=== PATIENT | male | born 1970 | race African-American/Black ===

== ENCOUNTER 2017-10-15 00:38 | Inpatient (IN) | payer SELFPAY ==
[~2017-10-15] VITALS: Ht 193 cm; Wt 117.7 kg
[2017-10-15] MEDS ORDERED: MORPHINE SULFATE 4 MG/ML CPJ (NOT FOR IM USE) IV STA (01:05)
[2017-10-15] MEDS ORDERED: SODIUM CHLORIDE 0.9% 1,000 ML IV ONE (01:05)
[2017-10-15] MEDS ORDERED: ONDANSETRON HCL 4MG/2ML VIAL IV STA (01:05)
[2017-10-15] MEDS ORDERED: AZITHROMYCIN 500 MG in DEXT 5% WATER 250 ML IV ONE (01:15)
[2017-10-15] MEDS ORDERED: CEFTRIAXONE 1 G PREMIX 50 ML IV ONE (01:15)
[2017-10-15 01:25] LABS: HEMATOCRIT. 40.3 % (42.0-52.0); HEMOGLOBIN. 12.9 g/dL (14.0-18.0); MEAN CORPUSCULAR HEMOGLOBIN 26.2 pg (28.0-32.0); MEAN CORPUSCULAR VOLUME 81.7 fL (80.0-94.0); MEAN PLATELET VOLUME 9.6 fl (7.4-10.4); PLATELET 304 x1000/uL (130-400); RED BLOOD CELL COUNT 4.94 mill/uL (4.7-6.1); RED CELL DISTRIBUTION WIDTH 13.8 % (11.6-14.6)
[2017-10-15 01:31] LABS: BG BASE EXCESS -7.4 mmol/L (-2.0-2.0); BG CARBOXYHEMOGLOBIN 0.4 % (0.5-1.5); BG DEOXYHEMOGLOBIN 5.4 % (0.0-5.0); BG FRACTION INSPIRED OXYGEN 21; BG HCO3 ACT 15.4 mmol/L (22.0-26.0); BG METHEMOGLOBIN 0.3 % (0.0-1.5); BG OXYGEN SATURATION 94.6 % (92.0-98.5); BG OXYHEMOGLOBIN 93.9 % (94.0-97.0); BG PCO2 24.9 mmHg (35.0-45.0); BG PH 7.409 (7.350-7.450); BG PO2 74.8 mmHg (75.0-100.0); BG SAMPLE SITE RIGHT RADIAL; BG TOTAL HEMOGLOBIN 13.6 g/dL (12.0-18.0); BG VENT MODE ROOM AIR
[2017-10-15 01:32] LABS: INR 1.3; PROTHROMBIN TIME 13.4 sec (9.4-11.6)
[2017-10-15] MEDS ORDERED: SODIUM CHLORIDE 0.9% 1000ML BAG (SEPSIS BOLUS) IV ONE (01:45)
[2017-10-15] MEDS ORDERED: ACETAMINOPHEN 325MG TABLET PO ONE (01:45)
[2017-10-15 02:10] LABS: PLATELET ESTIMATE NORMAL
[2017-10-15 02:11] LABS: CARBON DIOXIDE 16 mEq/L (21-32); CHLORIDE 84 mEq/L (98-107)
[2017-10-15 02:12] LABS: TROPONIN I 0.03 ng/mL (0.00-0.04)
[2017-10-15] MEDS ORDERED: ACETAMINOPHEN 325MG TABLET PO PRN (02:15)
[2017-10-15] MEDS ORDERED: IPRATROPIUM/ALBUTEROL 0.5-3(2.5)MG/3ML NEB INH PRN (03:30)
[2017-10-15] MEDS ORDERED: CLONIDINE 0.1MG TABLET PO PRN (03:30)
[2017-10-15] MEDS ORDERED: MAGNESIUM/ALUMINUM HYDROXIDE/SIMETHICONE 30ML UDC PO PRN (03:30)
[2017-10-15] MEDS ORDERED: DIPHENHYDRAMINE 50MG/ML VIAL IV PRN (03:30)
[2017-10-15] MEDS ORDERED: PIPERACILLIN/TAZ 3.375G PREMIX 50 ML IV SCH (03:30)
[2017-10-15] MEDS ORDERED: DEXTROSE 50% WATER 50ML SYRINGE IV PRN (03:30)
[2017-10-15] MEDS ORDERED: ONDANSETRON HCL 4MG/2ML VIAL IV PRN (03:30)
[2017-10-15] MEDS ORDERED: PIPERACILLIN/TAZ 3.375G PREMIX 50 ML IV NR (05:00)
[2017-10-15] MEDS ORDERED: INSULIN REGULAR (HUMULIN R) 300UNITS/3ML SUBCUT ONE (05:00)
[2017-10-15] MEDS ORDERED: VANCOMYCIN 1 G PREMIX 200 ML IV NR (05:30)
[2017-10-15 06:41] LABS: CLARITY URINE CLEAR (CLEAR); COLOR URINE YELLOW (YELLOW); KETONES URINE 1+ (NEGATIVE); LEUKOCYTE ESTERASE URINE NEGATIVE (NEGATIVE); NITRITE URINE NEGATIVE (NEGATIVE); OCCULT BLOOD URINE TRACE (NEGATIVE); PROTEIN URINE TRACE (NEGATIVE); SPECIFIC GRAVITY URINE 1.034 (1.005-1.030)
[2017-10-15] MEDS: SODIUM CHLORIDE 0.9% 1,000 ML IV SCH ×2 (07:20→23:30)
[2017-10-15 08:29] LABS: *AMPHETAMINES SCREEN URINE NEGATIVE (NEGATIVE); *BARBITURATES SCREEN URINE NEGATIVE (NEGATIVE); *BENZODIAZEPINES SCREEN URINE PRESUMTIVE POSITIVE (NEGATIVE); *COCAINE SCREEN URINE NEGATIVE (NEGATIVE); CANNABINOID URINE SCREEN NEGATIVE (NEGATIVE); METHADONE URINE SCREEN NEGATIVE (NEGATIVE); OPIATES URINE SCREEN PRESUMTIVE POSITIVE (NEGATIVE); PHENCYCLIDINE URINE SCREEN NEGATIVE (NEGATIVE)
[2017-10-15] MEDS: BLOOD SUGAR DIAGNOSTIC STRIP TEST SCH ×4 (08:48→21:06)
[2017-10-15 09:15] VITALS: BP 147/84
[2017-10-15] MEDS ORDERED: INSULIN GLARGINE UD 100 UNITS/ML SYR SUBCUT SCH (10:00)
[2017-10-15] MEDS ORDERED: DILTIAZEM HCL 5MG/ML 5ML VIAL IV NR ×2 (11:15→16:15)
[2017-10-15] MEDS: DILTIAZEM HCL 125 MG in SODIUM CHLORIDE 0.9% 100 ML IV PRN ×2 (11:37→21:40)
[2017-10-15] MEDS: ACETAMINOPHEN 325MG TABLET PO PRN (11:40)
[2017-10-15] MEDS: GUAIFENESIN 600MG ER TABLET PO SCH ×2 (11:40→21:01)
[2017-10-15] MEDS: VANCOMYCIN 1 G PREMIX 200 ML IV SCH ×2 (11:41→21:47)
[2017-10-15] MEDS ORDERED: LIDOCAINE HCL 1% 20ML VIAL (Pyxis) INJ ONE (12:58)
[2017-10-15 13:25] LABS: HEMATOCRIT. 36.6 % (42.0-52.0); MEAN CORPUSCULAR HEMOGLOBIN 26.7 pg (28.0-32.0); MEAN PLATELET VOLUME 10.3 fl (7.4-10.4); PLATELET 318 x1000/uL (130-400); RED BLOOD CELL COUNT 4.52 mill/uL (4.7-6.1)
[2017-10-15 13:40] LABS: CARBON DIOXIDE 20 mEq/L (21-32); CHLORIDE 91 mEq/L (98-107)
[2017-10-15] MEDS: INSULIN LISPRO 100 UNITS/ML SUBCUT SCH ×3 (13:47→21:11)
[2017-10-15 13:51] LABS: PLATELET ESTIMATE NORMAL
[2017-10-15] MEDS ORDERED: INSULIN GLARGINE UD 100 UNITS/ML SYR SUBCUT NR (14:00)
[2017-10-15] MEDS ORDERED: LIDOCAINE HCL 1% 20ML VIAL (Pyxis) INJ INFIL ONE (14:00)
[2017-10-15] MEDS: PROMETHAZINE/DEXTROMETHORPHAN 6.25-15MG/5ML BOTTLE 120ML PO PRN (15:26)
[2017-10-15] MEDS ORDERED: IPRATROPIUM/ALBUTEROL 0.5-3(2.5)MG/3ML NEB HHN PRN (15:45)
[2017-10-15] MEDS: PIPERACILLIN/TAZ 3.375G PREMIX 50 ML IV SCH ×2 (16:49→21:01)
[2017-10-15] MEDS: BUDESONIDE 0.5MG/2ML NEB HHN SCH (19:59)
[2017-10-15] MEDS: IPRATROPIUM/ALBUTEROL 0.5-3(2.5)MG/3ML NEB HHN SCH ×2 (19:59→23:55)
[2017-10-15 20:00] VITALS: BP 146/98
[2017-10-15 22:00] VITALS: BP 127/86
[2017-10-16] VITALS (12 sets, daily range): BP systolic 118–141; BP diastolic 67–94
[2017-10-16] MEDS: DIGOXIN 500MCG/2ML AMP IV PRN ×3 (00:54→06:30)
[2017-10-16] MEDS: IPRATROPIUM/ALBUTEROL 0.5-3(2.5)MG/3ML NEB HHN SCH ×2 (05:00→07:50)
[2017-10-16] MEDS: PIPERACILLIN/TAZ 3.375G PREMIX 50 ML IV SCH ×3 (06:30→21:30)
[2017-10-16] MEDS: BLOOD SUGAR DIAGNOSTIC STRIP TEST SCH ×4 (06:43→21:42)
[2017-10-16] MEDS: INSULIN LISPRO 100 UNITS/ML SUBCUT SCH ×4 (06:47→21:52)
[2017-10-16] MEDS: DILTIAZEM HCL 125 MG in SODIUM CHLORIDE 0.9% 100 ML IV PRN ×3 (07:21→23:27)
[2017-10-16] MEDS: BUDESONIDE 0.5MG/2ML NEB HHN SCH ×2 (07:51→21:05)
[2017-10-16] MEDS: SODIUM CHLORIDE 0.9% 1,000 ML IV SCH ×2 (09:30→19:30)
[2017-10-16 09:39] LABS: HEMATOCRIT. 36.3 % (42.0-52.0); MEAN CORPUSCULAR HEMOGLOBIN 26.2 pg (28.0-32.0); MEAN CORPUSCULAR VOLUME 79.4 fL (80.0-94.0); MEAN PLATELET VOLUME 9.7 fl (7.4-10.4); PLATELET 346 x1000/uL (130-400); RED BLOOD CELL COUNT 4.58 mill/uL (4.7-6.1); RED CELL DISTRIBUTION WIDTH 14.2 % (11.6-14.6)
[2017-10-16] MEDS ORDERED: INSULIN GLARGINE UD 100 UNITS/ML SYR SUBCUT SCH (10:00)
[2017-10-16 10:04] LABS: CARBON DIOXIDE 24 mEq/L (21-32); CHLORIDE 92 mEq/L (98-107)
[2017-10-16] MEDS: GUAIFENESIN 600MG ER TABLET PO SCH ×2 (10:18→21:30)
[2017-10-16] MEDS: IPRATROPIUM BROMIDE (0.02%) 0.5MG/2.5ML NEB HHN SCH ×2 (13:09→21:00)
[2017-10-16 13:52] LABS: PLATELET ESTIMATE NORMAL
[2017-10-16] MEDS: VANCOMYCIN 1 G PREMIX 200 ML IV SCH ×2 (15:14→23:28)
[2017-10-16] MEDS: PROMETHAZINE/DEXTROMETHORPHAN 6.25-15MG/5ML BOTTLE 120ML PO PRN (15:14)
[2017-10-16] MEDS: ACETAMINOPHEN 325MG TABLET PO PRN (16:35)
[2017-10-16] MEDS: ENOXAPARIN 120MG/0.8ML SYR SUBCUT SCH (21:30)
[2017-10-16] MEDS: METOPROLOL TARTRATE 50MG TABLET PO SCH (23:42)
[2017-10-17] VITALS (12 sets, daily range): BP systolic 112–165; BP diastolic 61–98
[2017-10-17] MEDS: IPRATROPIUM BROMIDE (0.02%) 0.5MG/2.5ML NEB HHN SCH ×4 (01:16→20:15)
[2017-10-17] MEDS: PIPERACILLIN/TAZ 3.375G PREMIX 50 ML IV SCH ×4 (01:22→19:36)
[2017-10-17] MEDS: DILTIAZEM HCL 125 MG in SODIUM CHLORIDE 0.9% 100 ML IV PRN ×2 (07:05→17:23)
[2017-10-17 07:17] LABS: HEMATOCRIT. 34.2 % (42.0-52.0); HEMOGLOBIN. 11.4 g/dL (14.0-18.0); MEAN CORPUSCULAR HEMOGLOBIN 26.7 pg (28.0-32.0); PLATELET 310 x1000/uL (130-400); RED BLOOD CELL COUNT 4.27 mill/uL (4.7-6.1); RED CELL DISTRIBUTION WIDTH 14.1 % (11.6-14.6)
[2017-10-17] MEDS: INSULIN LISPRO 100 UNITS/ML SUBCUT SCH ×4 (08:00→21:31)
[2017-10-17] MEDS: BLOOD SUGAR DIAGNOSTIC STRIP TEST SCH ×4 (08:10→21:14)
[2017-10-17 08:23] LABS: CARBON DIOXIDE 25 mEq/L (21-32); CHLORIDE 91 mEq/L (98-107)
[2017-10-17] MEDS: ENOXAPARIN 120MG/0.8ML SYR SUBCUT SCH ×2 (08:59→21:16)
[2017-10-17] MEDS: GUAIFENESIN 600MG ER TABLET PO SCH ×2 (08:59→21:14)
[2017-10-17] MEDS: METOPROLOL TARTRATE 50MG TABLET PO SCH ×3 (08:59→21:15)
[2017-10-17 09:56] LABS: CLARITY URINE CLEAR (CLEAR); COLOR URINE DARK YELLOW (YELLOW); KETONES URINE 3+ (NEGATIVE); LEUKOCYTE ESTERASE URINE NEGATIVE (NEGATIVE); NITRITE URINE NEGATIVE (NEGATIVE); OCCULT BLOOD URINE 1+ (NEGATIVE); PH URINE 6.5 (4.5-8.0); PROTEIN URINE 1+ (NEGATIVE); SPECIFIC GRAVITY URINE 1.035 (1.005-1.030); UROBILINOGEN URINE >8.0 E.U./dL (0.2-1.0)
[2017-10-17 10:19] LABS: PLATELET ESTIMATE NORMAL
[2017-10-17] MEDS: BUDESONIDE 0.5MG/2ML NEB HHN SCH ×2 (10:37→20:15)
[2017-10-17] MEDS: VANCOMYCIN 1 G PREMIX 200 ML IV SCH (10:49)
[2017-10-17] MEDS: DILTIAZEM HCL 60MG TABLET PO SCH ×2 (14:13→21:15)
[2017-10-17] MEDS ORDERED: TETANUS, DIPHTHERIA, PERTUSSIS VAC/PF 0.5ML (>7YR OLD) IM ONE (15:15)
[2017-10-17] MEDS: VANCOMYCIN 1500MG in DEXTROSE 5% WATER 250ML IV SCH (17:23)
[2017-10-17] MEDS ORDERED: INSULIN DETEMIR UD 100 UNITS/ML SYR SUBCUT SCH (22:00)
[2017-10-17] MEDS ORDERED: INSULIN GLARGINE UD 100 UNITS/ML SYR SUBCUT SCH (22:00)
[2017-10-17] MEDS ORDERED: METOPROLOL TARTRATE 25MG TABLET PO NR (22:30)
[2017-10-18] VITALS (14 sets, daily range): BP systolic 110–157; BP diastolic 54–101
[2017-10-18] MEDS: PIPERACILLIN/TAZ 3.375G PREMIX 50 ML IV SCH ×4 (01:34→20:09)
[2017-10-18] MEDS: IPRATROPIUM BROMIDE (0.02%) 0.5MG/2.5ML NEB HHN SCH ×4 (01:40→20:09)
[2017-10-18] MEDS: VANCOMYCIN 1500MG in DEXTROSE 5% WATER 250ML IV SCH ×2 (02:14→09:24)
[2017-10-18] MEDS: DILTIAZEM HCL 125 MG in SODIUM CHLORIDE 0.9% 100 ML IV PRN ×3 (02:22→20:34)
[2017-10-18] MEDS: MORPHINE SULFATE 4 MG/ML CPJ (NOT FOR IM USE) IV PRN ×2 (06:25→22:43)
[2017-10-18] MEDS: BLOOD SUGAR DIAGNOSTIC STRIP TEST SCH ×4 (07:30→21:53)
[2017-10-18] MEDS: BUDESONIDE 0.5MG/2ML NEB HHN SCH (08:15)
[2017-10-18] MEDS ORDERED: METOPROLOL TARTRATE 50MG TABLET PO SCH ×2 (09:00)
[2017-10-18] MEDS: GUAIFENESIN 600MG ER TABLET PO SCH ×2 (09:24→21:50)
[2017-10-18] MEDS: ENOXAPARIN 120MG/0.8ML SYR SUBCUT SCH ×2 (09:27→21:51)
[2017-10-18] MEDS: INSULIN LISPRO 100 UNITS/ML SUBCUT SCH ×4 (09:28→21:52)
[2017-10-18 09:29] LABS: HEMATOCRIT. 36.4 % (42.0-52.0); HEMOGLOBIN. 11.9 g/dL (14.0-18.0); MEAN CORPUSCULAR HEMOGLOBIN 26.2 pg (28.0-32.0); MEAN CORPUSCULAR VOLUME 80.2 fL (80.0-94.0); MEAN PLATELET VOLUME 9.1 fl (7.4-10.4); PLATELET 337 x1000/uL (130-400); RED BLOOD CELL COUNT 4.54 mill/uL (4.7-6.1); RED CELL DISTRIBUTION WIDTH 14.3 % (11.6-14.6)
[2017-10-18] MEDS: INSULIN GLARGINE UD 100 UNITS/ML SYR SUBCUT SCH ×2 (09:31→21:52)
[2017-10-18 10:00] LABS: CARBON DIOXIDE 25 mEq/L (21-32); CHLORIDE 91 mEq/L (98-107)
[2017-10-18] MEDS ORDERED: METOPROLOL TARTRATE 25MG TABLET PO SCH (13:00)
[2017-10-18] MEDS: FUROSEMIDE 40MG/4ML VIAL IVP SCH (14:39)
[2017-10-18] MEDS: CEFAZOLIN 2,000 MG in DEXTROSE 5% WATER 50 ML IV SCH ×2 (15:56→23:21)
[2017-10-18] MEDS: DILTIAZEM HCL 60MG TABLET PO SCH ×3 (15:57→23:23)
[2017-10-18] MEDS ORDERED: CEFAZOLIN 2,000 MG in DEXT 5% WATER 100 ML IV SCH (16:00)
[2017-10-18 20:53] LABS: PLATELET ESTIMATE NORMAL
[2017-10-18] MEDS: METOPROLOL TARTRATE 100MG TABLET PO SCH (21:50)
[2017-10-19] VITALS (15 sets, daily range): BP systolic 114–167; BP diastolic 58–101
[2017-10-19] MEDS: PIPERACILLIN/TAZ 3.375G PREMIX 50 ML IV SCH ×4 (01:29→21:32)
[2017-10-19] MEDS: IPRATROPIUM BROMIDE (0.02%) 0.5MG/2.5ML NEB HHN SCH ×3 (02:36→21:31)
[2017-10-19] MEDS: DILTIAZEM HCL 125 MG in SODIUM CHLORIDE 0.9% 100 ML IV PRN (04:27)
[2017-10-19] MEDS: DILTIAZEM HCL 60MG TABLET PO SCH ×3 (06:31→17:29)
[2017-10-19 06:42] LABS: HEMATOCRIT. 35.5 % (42.0-52.0); HEMOGLOBIN. 11.7 g/dL (14.0-18.0); MEAN CORPUSCULAR HEMOGLOBIN 26.5 pg (28.0-32.0); MEAN CORPUSCULAR VOLUME 80.2 fL (80.0-94.0); MEAN PLATELET VOLUME 9.2 fl (7.4-10.4); PLATELET 348 x1000/uL (130-400); RED BLOOD CELL COUNT 4.42 mill/uL (4.7-6.1); RED CELL DISTRIBUTION WIDTH 14.2 % (11.6-14.6)
[2017-10-19 07:23] LABS: CARBON DIOXIDE 25 mEq/L (21-32); CHLORIDE 93 mEq/L (98-107)
[2017-10-19] MEDS: BLOOD SUGAR DIAGNOSTIC STRIP TEST SCH ×4 (07:30→21:32)
[2017-10-19] MEDS: INSULIN LISPRO 100 UNITS/ML SUBCUT SCH ×4 (08:00→21:00)
[2017-10-19] MEDS: GUAIFENESIN 600MG ER TABLET PO SCH ×2 (09:28→21:30)
[2017-10-19] MEDS: CEFAZOLIN 2,000 MG in DEXTROSE 5% WATER 50 ML IV SCH ×2 (09:28→17:28)
[2017-10-19] MEDS: METFORMIN HCL 850MG TABLET PO SCH ×2 (09:28→17:28)
[2017-10-19] MEDS: POTASSIUM CHLORIDE 20MEQ TABLET SR PO SCH (09:28)
[2017-10-19] MEDS: FUROSEMIDE 40MG/4ML VIAL IVP SCH (09:28)
[2017-10-19] MEDS: METOPROLOL TARTRATE 100MG TABLET PO SCH ×2 (09:31→21:30)
[2017-10-19] MEDS: ENOXAPARIN 120MG/0.8ML SYR SUBCUT SCH ×2 (09:31→21:32)
[2017-10-19] MEDS: INSULIN GLARGINE UD 100 UNITS/ML SYR SUBCUT SCH ×2 (09:44→22:09)
[2017-10-19] MEDS ORDERED: KCL 20MEQ/100ML PREMIX 100 ML IV NR (15:00)
[2017-10-19] MEDS ORDERED: IOHEXOL-350 100 ML BOTTLE ONE ×2 (15:14→15:23)
[2017-10-19 21:46] LABS: ATYPICAL LYMPHOCYTES 2; PLATELET ESTIMATE NORMAL
[2017-10-20] VITALS (12 sets, daily range): BP systolic 123–158; BP diastolic 61–96
[2017-10-20] MEDS: DILTIAZEM HCL 60MG TABLET PO SCH ×3 (01:01→12:24)
[2017-10-20] MEDS: PIPERACILLIN/TAZ 3.375G PREMIX 50 ML IV SCH ×4 (01:01→21:39)
[2017-10-20] MEDS: CEFAZOLIN 2,000 MG in DEXTROSE 5% WATER 50 ML IV SCH ×3 (01:01→16:53)
[2017-10-20] MEDS: IPRATROPIUM BROMIDE (0.02%) 0.5MG/2.5ML NEB HHN SCH ×3 (01:59→20:20)
[2017-10-20 07:15] LABS: CHLORIDE 94 mEq/L (98-107)
[2017-10-20 07:19] LABS: HEMATOCRIT. 35.5 % (42.0-52.0); HEMOGLOBIN. 11.8 g/dL (14.0-18.0); MEAN CORPUSCULAR HEMOGLOBIN 26.5 pg (28.0-32.0); PLATELET 365 x1000/uL (130-400); RED BLOOD CELL COUNT 4.43 mill/uL (4.7-6.1); RED CELL DISTRIBUTION WIDTH 14.1 % (11.6-14.6)
[2017-10-20 07:36] LABS: CARBON DIOXIDE 27 mEq/L (21-32)
[2017-10-20] MEDS: INSULIN LISPRO 100 UNITS/ML SUBCUT SCH ×4 (08:00→21:53)
[2017-10-20] MEDS: BLOOD SUGAR DIAGNOSTIC STRIP TEST SCH ×4 (08:15→21:41)
[2017-10-20] MEDS: GUAIFENESIN 600MG ER TABLET PO SCH ×2 (08:53→21:39)
[2017-10-20] MEDS: METFORMIN HCL 850MG TABLET PO SCH ×2 (08:53→18:32)
[2017-10-20] MEDS: ENOXAPARIN 120MG/0.8ML SYR SUBCUT SCH ×2 (08:53→21:41)
[2017-10-20] MEDS: POTASSIUM CHLORIDE 20MEQ TABLET SR PO SCH (08:53)
[2017-10-20] MEDS: FUROSEMIDE 40MG/4ML VIAL IVP SCH (08:53)
[2017-10-20] MEDS: METOPROLOL TARTRATE 100MG TABLET PO SCH ×2 (08:54→21:40)
[2017-10-20] MEDS: INSULIN GLARGINE UD 100 UNITS/ML SYR SUBCUT SCH ×2 (10:02→21:54)
[2017-10-20 14:37] LABS: PLATELET ESTIMATE NORMAL
[2017-10-20] MEDS ORDERED: POTASSIUM CHLORIDE 20MEQ TABLET SR PO NR (14:45)
[2017-10-20] MEDS: DILTIAZEM HCL 90MG TABLET PO SCH (18:32)
[2017-10-21] VITALS (12 sets, daily range): BP systolic 116–160; BP diastolic 74–101
[2017-10-21] MEDS: CEFAZOLIN 2,000 MG in DEXTROSE 5% WATER 50 ML IV SCH ×3 (00:51→18:26)
[2017-10-21] MEDS: DILTIAZEM HCL 90MG TABLET PO SCH ×4 (00:53→18:24)
[2017-10-21] MEDS: ACETAMINOPHEN 325MG TABLET PO PRN ×2 (00:53→05:40)
[2017-10-21] MEDS: PIPERACILLIN/TAZ 3.375G PREMIX 50 ML IV SCH ×4 (01:00→20:59)
[2017-10-21] MEDS: IPRATROPIUM BROMIDE (0.02%) 0.5MG/2.5ML NEB HHN SCH ×4 (02:15→19:58)
[2017-10-21 06:41] LABS: HEMATOCRIT. 35.8 % (42.0-52.0); HEMOGLOBIN. 11.6 g/dL (14.0-18.0); MEAN CORPUSCULAR HEMOGLOBIN 25.9 pg (28.0-32.0); MEAN CORPUSCULAR VOLUME 80.1 fL (80.0-94.0); MEAN PLATELET VOLUME 8.7 fl (7.4-10.4); PLATELET 401 x1000/uL (130-400); RED BLOOD CELL COUNT 4.47 mill/uL (4.7-6.1); RED CELL DISTRIBUTION WIDTH 14.2 % (11.6-14.6)
[2017-10-21] MEDS: BLOOD SUGAR DIAGNOSTIC STRIP TEST SCH ×4 (07:30→21:01)
[2017-10-21 07:48] LABS: CARBON DIOXIDE 30 mEq/L (21-32); CHLORIDE 96 mEq/L (98-107)
[2017-10-21] MEDS: INSULIN LISPRO 100 UNITS/ML SUBCUT SCH ×4 (08:00→21:01)
[2017-10-21] MEDS: FUROSEMIDE 40MG/4ML VIAL IVP SCH (09:12)
[2017-10-21] MEDS: METFORMIN HCL 850MG TABLET PO SCH ×2 (09:12→18:24)
[2017-10-21] MEDS: ENOXAPARIN 120MG/0.8ML SYR SUBCUT SCH ×2 (09:13→20:59)
[2017-10-21] MEDS: POTASSIUM CHLORIDE 20MEQ TABLET SR PO SCH (09:13)
[2017-10-21] MEDS: METOPROLOL TARTRATE 100MG TABLET PO SCH ×2 (09:13→21:00)
[2017-10-21] MEDS: INSULIN GLARGINE UD 100 UNITS/ML SYR SUBCUT SCH ×2 (09:14→22:19)
[2017-10-21] MEDS: GUAIFENESIN 600MG ER TABLET PO SCH ×2 (09:14→20:59)
[2017-10-22] VITALS (12 sets, daily range): BP systolic 128–154; BP diastolic 73–104
[2017-10-22] MEDS: CEFAZOLIN 2,000 MG in DEXTROSE 5% WATER 50 ML IV SCH ×3 (00:48→16:03)
[2017-10-22] MEDS: DILTIAZEM HCL 90MG TABLET PO SCH ×4 (00:52→18:02)
[2017-10-22] MEDS: IPRATROPIUM BROMIDE (0.02%) 0.5MG/2.5ML NEB HHN SCH ×4 (02:09→20:52)
[2017-10-22] MEDS: SODIUM CHLORIDE 0.9% 1,000 ML IV SCH (06:14)
[2017-10-22 06:16] LABS: BASOPHILS % 0.7 % (0.0-2.0); EOSINOPHILS % 0.4 % (0.0-5.0); HEMATOCRIT. 34.3 % (42.0-52.0); HEMOGLOBIN. 11.1 g/dL (14.0-18.0); LYMPHOCYTES % 9.4 % (20.0-50.0); MEAN CORPUSCULAR HEMOGLOBIN 25.9 pg (28.0-32.0); MEAN CORPUSCULAR VOLUME 80.2 fL (80.0-94.0); MEAN PLATELET VOLUME 8.5 fl (7.4-10.4); MONOCYTES % 6.5 % (2.0-8.0); PLATELET 486 x1000/uL (130-400); RED BLOOD CELL COUNT 4.28 mill/uL (4.7-6.1); RED CELL DISTRIBUTION WIDTH 14.4 % (11.6-14.6)
[2017-10-22 07:31] LABS: CARBON DIOXIDE 25 mEq/L (21-32); CHLORIDE 98 mEq/L (98-107); TROPONIN I < 0.02 ng/mL (0.00-0.04)
[2017-10-22] MEDS: INSULIN LISPRO 100 UNITS/ML SUBCUT SCH ×4 (07:56→21:20)
[2017-10-22] MEDS: BLOOD SUGAR DIAGNOSTIC STRIP TEST SCH ×4 (07:56→21:25)
[2017-10-22] MEDS: METFORMIN HCL 850MG TABLET PO SCH ×2 (08:11→18:02)
[2017-10-22] MEDS: FUROSEMIDE 40MG/4ML VIAL IVP SCH (08:11)
[2017-10-22] MEDS: METOPROLOL TARTRATE 100MG TABLET PO SCH ×2 (08:11→21:24)
[2017-10-22] MEDS: GUAIFENESIN 600MG ER TABLET PO SCH ×2 (08:11→21:21)
[2017-10-22] MEDS: SPIRONOLACTONE 25MG TABLET PO SCH (08:12)
[2017-10-22] MEDS: POTASSIUM CHLORIDE 20MEQ TABLET SR PO SCH (08:12)
[2017-10-22] MEDS: ENOXAPARIN 120MG/0.8ML SYR SUBCUT SCH (08:13)
[2017-10-22] MEDS: ENOXAPARIN 30MG/0.3ML SYR SUBCUT SCH ×2 (09:00→21:21)
[2017-10-22] MEDS: INSULIN GLARGINE UD 100 UNITS/ML SYR SUBCUT SCH ×2 (09:54→21:20)
[2017-10-22 12:06] LABS: PLATELET ESTIMATE SLIGHTLY INCREASED
[2017-10-23] VITALS (12 sets, daily range): BP systolic 130–185; BP diastolic 41–96
[2017-10-23] MEDS: CEFAZOLIN 2,000 MG in DEXTROSE 5% WATER 50 ML IV SCH ×4 (00:43→23:43)
[2017-10-23] MEDS: DILTIAZEM HCL 90MG TABLET PO SCH ×5 (00:43→23:43)
[2017-10-23] MEDS: IPRATROPIUM BROMIDE (0.02%) 0.5MG/2.5ML NEB HHN SCH ×4 (02:10→20:50)
[2017-10-23] MEDS: BLOOD SUGAR DIAGNOSTIC STRIP TEST SCH ×4 (07:40→21:11)
[2017-10-23] MEDS: INSULIN LISPRO 100 UNITS/ML SUBCUT SCH ×4 (07:54→21:10)
[2017-10-23] MEDS: SPIRONOLACTONE 25MG TABLET PO SCH (09:47)
[2017-10-23] MEDS: METFORMIN HCL 850MG TABLET PO SCH ×2 (09:47→18:35)
[2017-10-23] MEDS: GUAIFENESIN 600MG ER TABLET PO SCH ×2 (09:47→21:09)
[2017-10-23] MEDS: POTASSIUM CHLORIDE 20MEQ TABLET SR PO SCH (09:47)
[2017-10-23] MEDS: FUROSEMIDE 40MG/4ML VIAL IVP SCH (09:47)
[2017-10-23] MEDS: METOPROLOL TARTRATE 100MG TABLET PO SCH (09:48)
[2017-10-23] MEDS: ENOXAPARIN 30MG/0.3ML SYR SUBCUT SCH ×2 (09:48→21:09)
[2017-10-23] MEDS: INSULIN GLARGINE UD 100 UNITS/ML SYR SUBCUT SCH ×2 (13:00→21:11)
[2017-10-23] MEDS: CARVEDILOL 25MG TABLET PO SCH ×2 (15:06→23:44)
[2017-10-24] VITALS (12 sets, daily range): BP systolic 111–145; BP diastolic 63–95
[2017-10-24] MEDS: IPRATROPIUM BROMIDE (0.02%) 0.5MG/2.5ML NEB HHN SCH ×4 (02:48→20:39)
[2017-10-24] MEDS: HYDROCODONE/ACETAMINOPHEN 5/325MG TABLET PO PRN ×4 (05:42→21:22)
[2017-10-24] MEDS: DILTIAZEM HCL 90MG TABLET PO SCH ×3 (05:43→17:22)
[2017-10-24 07:21] LABS: BASOPHILS % 0.5 % (0.0-2.0); EOSINOPHILS % 0.5 % (0.0-5.0); LYMPHOCYTES % 10.2 % (20.0-50.0); MEAN CORPUSCULAR HEMOGLOBIN 26.8 pg (28.0-32.0); MEAN CORPUSCULAR VOLUME 80.6 fL (80.0-94.0); MONOCYTES % 5.7 % (2.0-8.0); NEUTROPHILS % 83.1 % (40.0-76.0); PLATELET 574 x1000/uL (130-400); RED CELL DISTRIBUTION WIDTH 14.4 % (11.6-14.6)
[2017-10-24] MEDS: BLOOD SUGAR DIAGNOSTIC STRIP TEST SCH ×4 (07:35→21:23)
[2017-10-24 08:16] LABS: CHLORIDE 99 mEq/L (98-107)
[2017-10-24 08:27] LABS: CARBON DIOXIDE 22 mEq/L (21-32)
[2017-10-24] MEDS: POTASSIUM CHLORIDE 20MEQ TABLET SR PO SCH (08:45)
[2017-10-24] MEDS: ENOXAPARIN 30MG/0.3ML SYR SUBCUT SCH ×2 (08:45→21:22)
[2017-10-24] MEDS: GUAIFENESIN 600MG ER TABLET PO SCH ×2 (08:45→21:22)
[2017-10-24] MEDS: CARVEDILOL 25MG TABLET PO SCH ×2 (08:45→21:22)
[2017-10-24] MEDS: METFORMIN HCL 850MG TABLET PO SCH ×2 (08:45→17:18)
[2017-10-24] MEDS: CEFAZOLIN 2,000 MG in DEXTROSE 5% WATER 50 ML IV SCH ×2 (08:45→15:59)
[2017-10-24] MEDS: SPIRONOLACTONE 25MG TABLET PO SCH (08:45)
[2017-10-24] MEDS: FUROSEMIDE 40MG TABLET PO SCH (08:45)
[2017-10-24] MEDS: INSULIN LISPRO 100 UNITS/ML SUBCUT SCH ×4 (08:47→21:23)
[2017-10-24] MEDS: INSULIN GLARGINE UD 100 UNITS/ML SYR SUBCUT SCH ×2 (10:16→21:30)
[2017-10-25] VITALS (8 sets, daily range): BP systolic 104–144; BP diastolic 64–86
[2017-10-25] MEDS: DILTIAZEM HCL 90MG TABLET PO SCH ×4 (00:04→17:44)
[2017-10-25] MEDS: CEFAZOLIN 2,000 MG in DEXTROSE 5% WATER 50 ML IV SCH ×2 (00:04→08:06)
[2017-10-25] MEDS: IPRATROPIUM BROMIDE (0.02%) 0.5MG/2.5ML NEB HHN SCH ×4 (02:59→20:56)
[2017-10-25] MEDS: INSULIN LISPRO 100 UNITS/ML SUBCUT SCH ×4 (08:00→22:00)
[2017-10-25] MEDS: GUAIFENESIN 600MG ER TABLET PO SCH ×2 (08:05→21:56)
[2017-10-25] MEDS: ENOXAPARIN 30MG/0.3ML SYR SUBCUT SCH ×2 (08:06→21:56)
[2017-10-25] MEDS: CARVEDILOL 25MG TABLET PO SCH ×2 (08:06→21:56)
[2017-10-25] MEDS: POTASSIUM CHLORIDE 20MEQ TABLET SR PO SCH (08:06)
[2017-10-25] MEDS: FUROSEMIDE 40MG TABLET PO SCH (08:06)
[2017-10-25] MEDS: METFORMIN HCL 850MG TABLET PO SCH ×2 (08:06→17:44)
[2017-10-25] MEDS: SPIRONOLACTONE 25MG TABLET PO SCH (08:06)
[2017-10-25] MEDS: HYDROCODONE/ACETAMINOPHEN 5/325MG TABLET PO PRN ×3 (08:22→20:02)
[2017-10-25] MEDS: BLOOD SUGAR DIAGNOSTIC STRIP TEST SCH ×4 (08:23→21:57)
[2017-10-25] MEDS: INSULIN GLARGINE UD 100 UNITS/ML SYR SUBCUT SCH ×2 (11:48→22:00)
[2017-10-25] MEDS: CEFAZOLIN 2,000 MG in SODIUM CHLORIDE 0.9% 50 ML IV SCH (15:49)
[2017-10-26] VITALS: BP 123/80
[2017-10-26] MEDS: CEFAZOLIN 2,000 MG in SODIUM CHLORIDE 0.9% 50 ML IV SCH ×3 (00:06→16:11)
[2017-10-26] MEDS: DILTIAZEM HCL 90MG TABLET PO SCH ×4 (00:06→17:47)
[2017-10-26] MEDS: IPRATROPIUM BROMIDE (0.02%) 0.5MG/2.5ML NEB HHN SCH ×4 (02:00→20:31)
[2017-10-26 04:00] VITALS: BP 108/67
[2017-10-26] MEDS: HYDROCODONE/ACETAMINOPHEN 5/325MG TABLET PO PRN (06:09)
[2017-10-26] MEDS: INSULIN LISPRO 100 UNITS/ML SUBCUT SCH ×4 (08:00→21:26)
[2017-10-26] MEDS: BLOOD SUGAR DIAGNOSTIC STRIP TEST SCH ×4 (08:06→21:26)
[2017-10-26 08:07] VITALS: BP 123/71
[2017-10-26] MEDS: ENOXAPARIN 30MG/0.3ML SYR SUBCUT SCH ×2 (08:15→21:25)
[2017-10-26] MEDS: FUROSEMIDE 40MG TABLET PO SCH (08:15)
[2017-10-26] MEDS: METFORMIN HCL 850MG TABLET PO SCH ×2 (08:15→17:47)
[2017-10-26] MEDS: CARVEDILOL 25MG TABLET PO SCH ×2 (08:15→21:25)
[2017-10-26] MEDS: POTASSIUM CHLORIDE 20MEQ TABLET SR PO SCH (08:15)
[2017-10-26] MEDS: GUAIFENESIN 600MG ER TABLET PO SCH ×2 (08:15→21:25)
[2017-10-26] MEDS: SPIRONOLACTONE 25MG TABLET PO SCH (08:15)
[2017-10-26] MEDS: INSULIN GLARGINE UD 100 UNITS/ML SYR SUBCUT SCH ×2 (11:32→21:26)
[2017-10-26 11:47] VITALS: BP 138/92
[2017-10-26] MEDS: TAMSULOSIN HCL 0.4MG SR CAPSULE PO SCH (14:57)
[2017-10-26 16:15] VITALS: BP 133/83
[2017-10-26 19:32] VITALS: BP 127/82
[2017-10-27] VITALS (10 sets, daily range): BP systolic 123–163; BP diastolic 78–99
[2017-10-27] MEDS: CEFAZOLIN 2,000 MG in SODIUM CHLORIDE 0.9% 50 ML IV SCH ×2 (00:20→08:15)
[2017-10-27] MEDS: DILTIAZEM HCL 90MG TABLET PO SCH ×4 (00:21→17:57)
[2017-10-27] MEDS: IPRATROPIUM BROMIDE (0.02%) 0.5MG/2.5ML NEB HHN SCH ×4 (01:52→20:38)
[2017-10-27] MEDS: HYDROCODONE/ACETAMINOPHEN 5/325MG TABLET PO PRN ×3 (06:30→21:50)
[2017-10-27] MEDS: BLOOD SUGAR DIAGNOSTIC STRIP TEST SCH ×4 (07:30→21:51)
[2017-10-27] MEDS: ENOXAPARIN 30MG/0.3ML SYR SUBCUT SCH ×2 (08:15→21:58)
[2017-10-27] MEDS: METFORMIN HCL 850MG TABLET PO SCH ×2 (08:16→17:55)
[2017-10-27] MEDS: TAMSULOSIN HCL 0.4MG SR CAPSULE PO SCH (08:16)
[2017-10-27] MEDS: GUAIFENESIN 600MG ER TABLET PO SCH ×2 (08:16→21:45)
[2017-10-27] MEDS: POTASSIUM CHLORIDE 20MEQ TABLET SR PO SCH (08:16)
[2017-10-27] MEDS: SPIRONOLACTONE 25MG TABLET PO SCH (08:17)
[2017-10-27] MEDS: CARVEDILOL 25MG TABLET PO SCH ×2 (08:17→21:49)
[2017-10-27] MEDS: FUROSEMIDE 40MG TABLET PO SCH (08:17)
[2017-10-27] MEDS: INSULIN LISPRO 100 UNITS/ML SUBCUT SCH ×4 (08:31→21:58)
[2017-10-27] MEDS: INSULIN GLARGINE UD 100 UNITS/ML SYR SUBCUT SCH ×2 (09:09→21:57)
[2017-10-27] MEDS: CEFAZOLIN 2,000 MG in SODIUM CHLORIDE 0.9% 100 ML IV SCH (17:59)
[2017-10-28] VITALS: BP 152/88
[2017-10-28] MEDS: CEFAZOLIN 2,000 MG in SODIUM CHLORIDE 0.9% 100 ML IV SCH ×3 (00:30→17:25)
[2017-10-28] MEDS: DILTIAZEM HCL 90MG TABLET PO SCH ×4 (00:35→19:17)
[2017-10-28] MEDS: IPRATROPIUM BROMIDE (0.02%) 0.5MG/2.5ML NEB HHN SCH ×4 (02:12→21:43)
[2017-10-28 04:00] VITALS: BP 139/79
[2017-10-28] MEDS: HYDROCODONE/ACETAMINOPHEN 5/325MG TABLET PO PRN ×2 (05:54→10:23)
[2017-10-28 07:06] LABS: BASOPHILS % 0.5 % (0.0-2.0); EOSINOPHILS % 0.1 % (0.0-5.0); LYMPHOCYTES % 8.8 % (20.0-50.0); MEAN CORPUSCULAR HEMOGLOBIN 26.7 pg (28.0-32.0); MEAN CORPUSCULAR VOLUME 79.9 fL (80.0-94.0); MEAN PLATELET VOLUME 7.6 fl (7.4-10.4); MONOCYTES % 6.7 % (2.0-8.0); NEUTROPHILS % 83.9 % (40.0-76.0); PLATELET 560 x1000/uL (130-400); RED BLOOD CELL COUNT 4.13 mill/uL (4.7-6.1)
[2017-10-28] MEDS: BLOOD SUGAR DIAGNOSTIC STRIP TEST SCH ×4 (07:30→21:51)
[2017-10-28 08:00] VITALS: BP 124/85
[2017-10-28] MEDS: INSULIN LISPRO 100 UNITS/ML SUBCUT SCH ×4 (08:00→21:51)
[2017-10-28 08:01] LABS: CARBON DIOXIDE 27 mEq/L (21-32); CHLORIDE 94 mEq/L (98-107)
[2017-10-28] MEDS: FUROSEMIDE 40MG TABLET PO SCH (09:20)
[2017-10-28] MEDS: SPIRONOLACTONE 25MG TABLET PO SCH (09:20)
[2017-10-28] MEDS: METFORMIN HCL 850MG TABLET PO SCH ×2 (09:20→17:21)
[2017-10-28] MEDS: GUAIFENESIN 600MG ER TABLET PO SCH ×2 (09:20→20:41)
[2017-10-28] MEDS: ENOXAPARIN 30MG/0.3ML SYR SUBCUT SCH ×2 (09:20→20:39)
[2017-10-28] MEDS: POTASSIUM CHLORIDE 20MEQ TABLET SR PO SCH (09:21)
[2017-10-28] MEDS: ACETAMINOPHEN 325MG TABLET PO PRN (09:21)
[2017-10-28] MEDS: CARVEDILOL 25MG TABLET PO SCH ×2 (09:21→20:38)
[2017-10-28] MEDS: TAMSULOSIN HCL 0.4MG SR CAPSULE PO SCH (09:21)
[2017-10-28] MEDS: INSULIN GLARGINE UD 100 UNITS/ML SYR SUBCUT SCH ×2 (10:15→21:36)
[2017-10-28 16:00] VITALS: BP 127/86
[2017-10-28 20:00] VITALS: BP 146/97
[2017-10-28 22:00] VITALS: BP 144/85
[2017-10-29] VITALS (7 sets, daily range): BP systolic 131–154; BP diastolic 71–95
[2017-10-29] MEDS: DILTIAZEM HCL 90MG TABLET PO SCH ×5 (00:04→23:42)
[2017-10-29] MEDS: IPRATROPIUM BROMIDE (0.02%) 0.5MG/2.5ML NEB HHN SCH ×3 (03:08→20:41)
[2017-10-29] MEDS: ACETAMINOPHEN 325MG TABLET PO PRN (06:12)
[2017-10-29] MEDS: INSULIN LISPRO 100 UNITS/ML SUBCUT SCH ×4 (08:00→20:31)
[2017-10-29] MEDS: BLOOD SUGAR DIAGNOSTIC STRIP TEST SCH ×4 (08:16→20:28)
[2017-10-29] MEDS: CEFAZOLIN 2,000 MG in SODIUM CHLORIDE 0.9% 100 ML IV SCH ×4 (08:36→18:33)
[2017-10-29] MEDS: METFORMIN HCL 850MG TABLET PO SCH ×2 (08:36→18:36)
[2017-10-29] MEDS: POTASSIUM CHLORIDE 20MEQ TABLET SR PO SCH (10:10)
[2017-10-29] MEDS: SPIRONOLACTONE 25MG TABLET PO SCH (10:11)
[2017-10-29] MEDS: GUAIFENESIN 600MG ER TABLET PO SCH ×2 (10:11→20:28)
[2017-10-29] MEDS: FUROSEMIDE 40MG TABLET PO SCH (10:11)
[2017-10-29] MEDS: CARVEDILOL 25MG TABLET PO SCH ×2 (10:11→20:28)
[2017-10-29] MEDS: TAMSULOSIN HCL 0.4MG SR CAPSULE PO SCH (10:11)
[2017-10-29] MEDS: ENOXAPARIN 30MG/0.3ML SYR SUBCUT SCH ×2 (10:11→20:28)
[2017-10-29] MEDS: INSULIN GLARGINE UD 100 UNITS/ML SYR SUBCUT SCH ×2 (10:14→21:26)
[2017-10-29] MEDS ORDERED: HYDROCODONE/ACETAMINOPHEN 5/325MG TABLET PO SCH (13:15)
[2017-10-29] MEDS: HYDROCODONE/ACETAMINOPHEN 5/325MG TABLET PO PRN ×2 (18:58→23:43)
[2017-10-30] MEDS: IPRATROPIUM BROMIDE (0.02%) 0.5MG/2.5ML NEB HHN SCH ×4 (01:43→21:38)
[2017-10-30 04:00] VITALS: BP 145/90
[2017-10-30] MEDS: HYDROCODONE/ACETAMINOPHEN 5/325MG TABLET PO PRN (04:05)
[2017-10-30] MEDS: DILTIAZEM HCL 90MG TABLET PO SCH ×4 (05:35→23:50)
[2017-10-30 08:00] VITALS: BP 129/81
[2017-10-30] MEDS: BLOOD SUGAR DIAGNOSTIC STRIP TEST SCH ×4 (08:23→20:49)
[2017-10-30] MEDS: GUAIFENESIN 600MG ER TABLET PO SCH ×2 (08:37→20:41)
[2017-10-30] MEDS: INSULIN LISPRO 100 UNITS/ML SUBCUT SCH ×4 (08:37→20:49)
[2017-10-30] MEDS: TAMSULOSIN HCL 0.4MG SR CAPSULE PO SCH (08:37)
[2017-10-30] MEDS: METFORMIN HCL 850MG TABLET PO SCH ×2 (08:37→17:27)
[2017-10-30] MEDS: SPIRONOLACTONE 25MG TABLET PO SCH (08:37)
[2017-10-30] MEDS: FUROSEMIDE 40MG TABLET PO SCH (08:37)
[2017-10-30] MEDS: POTASSIUM CHLORIDE 20MEQ TABLET SR PO SCH (08:38)
[2017-10-30] MEDS: CARVEDILOL 25MG TABLET PO SCH ×2 (08:38→20:42)
[2017-10-30] MEDS: ENOXAPARIN 30MG/0.3ML SYR SUBCUT SCH ×2 (08:38→20:43)
[2017-10-30] MEDS: INSULIN GLARGINE UD 100 UNITS/ML SYR SUBCUT SCH ×2 (11:23→21:39)
[2017-10-30 12:00] VITALS: BP 119/85
[2017-10-30] MEDS ORDERED: FUROSEMIDE 40MG/4ML VIAL IVP SCH (13:30)
[2017-10-30] MEDS ORDERED: IBUPROFEN 800MG TABLET PO SCH (13:39)
[2017-10-30] MEDS: IBUPROFEN 800MG TABLET PO SCH ×2 (14:06→20:41)
[2017-10-30 16:00] VITALS: BP 126/84
[2017-10-30] MEDS: HYDROCODONE/ACETAMINOPHEN 10/325MG TABLET PO PRN ×2 (16:28→23:50)
[2017-10-30 20:13] VITALS: BP 134/98
[2017-10-30 23:48] VITALS: BP 134/91
[2017-10-31] MEDS: IBUPROFEN 800MG TABLET PO SCH ×4 (02:04→20:04)
[2017-10-31] MEDS: IPRATROPIUM BROMIDE (0.02%) 0.5MG/2.5ML NEB HHN SCH ×4 (02:49→22:15)
[2017-10-31 04:00] VITALS: BP 119/75
[2017-10-31] MEDS: DILTIAZEM HCL 90MG TABLET PO SCH ×4 (05:54→23:54)
[2017-10-31] MEDS: BLOOD SUGAR DIAGNOSTIC STRIP TEST SCH ×4 (06:50→20:15)
[2017-10-31] MEDS: INSULIN LISPRO 100 UNITS/ML SUBCUT SCH ×4 (07:27→20:15)
[2017-10-31 08:00] VITALS: BP 109/73
[2017-10-31 08:09] LABS: CARBON DIOXIDE 27 mEq/L (21-32); CHLORIDE 97 mEq/L (98-107)
[2017-10-31] MEDS: ENOXAPARIN 30MG/0.3ML SYR SUBCUT SCH ×2 (08:28→20:14)
[2017-10-31] MEDS: SPIRONOLACTONE 25MG TABLET PO SCH (08:28)
[2017-10-31] MEDS: GUAIFENESIN 600MG ER TABLET PO SCH ×2 (08:28→20:08)
[2017-10-31] MEDS: FUROSEMIDE 40MG TABLET PO SCH (08:28)
[2017-10-31] MEDS: POTASSIUM CHLORIDE 20MEQ TABLET SR PO SCH (08:28)
[2017-10-31] MEDS: METFORMIN HCL 850MG TABLET PO SCH ×2 (08:28→17:23)
[2017-10-31] MEDS: CARVEDILOL 25MG TABLET PO SCH ×2 (08:30→20:08)
[2017-10-31] MEDS: TAMSULOSIN HCL 0.4MG SR CAPSULE PO SCH (08:32)
[2017-10-31] MEDS: INSULIN GLARGINE UD 100 UNITS/ML SYR SUBCUT SCH ×2 (11:03→21:42)
[2017-10-31 12:00] VITALS: BP 109/76
[2017-10-31] MEDS: SULFAMETHOXAZOLE/TRIMETHOPRIM 800/160MG TABLET PO SCH ×2 (13:07→20:08)
[2017-10-31 16:00] VITALS: BP 126/85
[2017-10-31 20:00] VITALS: BP 118/76
[2017-10-31] MEDS: HYDROCODONE/ACETAMINOPHEN 10/325MG TABLET PO PRN (23:57)
[2017-11-01] VITALS: BP 140/89
[2017-11-01] MEDS: IBUPROFEN 800MG TABLET PO SCH ×3 (02:20→14:00)
[2017-11-01] MEDS: IPRATROPIUM BROMIDE (0.02%) 0.5MG/2.5ML NEB HHN SCH ×3 (02:54→15:58)
[2017-11-01 04:00] VITALS: BP 140/86
[2017-11-01] MEDS: DILTIAZEM HCL 90MG TABLET PO SCH ×3 (05:56→18:00)
[2017-11-01] MEDS: BLOOD SUGAR DIAGNOSTIC STRIP TEST SCH ×3 (06:54→17:19)
[2017-11-01 08:00] VITALS: BP 133/85
[2017-11-01] MEDS: TAMSULOSIN HCL 0.4MG SR CAPSULE PO SCH (10:37)
[2017-11-01] MEDS: SULFAMETHOXAZOLE/TRIMETHOPRIM 800/160MG TABLET PO SCH (10:37)
[2017-11-01] MEDS: METFORMIN HCL 850MG TABLET PO SCH ×2 (10:38→18:10)
[2017-11-01] MEDS: FUROSEMIDE 40MG TABLET PO SCH (10:38)
[2017-11-01] MEDS: GUAIFENESIN 600MG ER TABLET PO SCH (10:39)
[2017-11-01] MEDS: SPIRONOLACTONE 25MG TABLET PO SCH (10:39)
[2017-11-01] MEDS: POTASSIUM CHLORIDE 20MEQ TABLET SR PO SCH (10:39)
[2017-11-01] MEDS: CARVEDILOL 25MG TABLET PO SCH (10:39)
[2017-11-01] MEDS: HYDROCODONE/ACETAMINOPHEN 10/325MG TABLET PO PRN (10:40)
[2017-11-01] MEDS: ENOXAPARIN 30MG/0.3ML SYR SUBCUT SCH (10:41)
[2017-11-01] MEDS: INSULIN GLARGINE UD 100 UNITS/ML SYR SUBCUT SCH (10:43)
[2017-11-01] MEDS: INSULIN LISPRO 100 UNITS/ML SUBCUT SCH ×3 (10:45→18:10)
[2017-11-01 12:00] VITALS: BP 128/88
[2017-11-01 16:00] VITALS: BP 125/83
[2017-11-01 17:43] VITALS: BP 125/83
== END 2017-11-01 18:20 | disposition home or self-care (01) | DRG 720 ==
LOC: ER 00:38 → EDBEDREQTM 02:15 → EDBEDREQ 02:15 → 5EST 07:36 → ENRESERV 07:36 → 7WST 10-30 16:04
PROVIDERS: ADMIT Internal Medicine; ATTEND Internal Medicine
PROC: 02HV33Z Insertion of Infusion Device into Superior Vena Cava, Percutaneous Approach (ICD-10-PCS; 2017-10-15)
PROC: B548ZZA Ultrasonography of Superior Vena Cava, Guidance (ICD-10-PCS; 2017-10-15)
PROC: 0H98XZZ Drainage of Buttock Skin, External Approach (ICD-10-PCS; principal; 2017-10-16)
DX: A41.01 Sepsis due to Methicillin susceptible Staphylococcus aureus (principal); J96.01 Acute respiratory failure with hypoxia; E43 Unspecified severe protein-calorie malnutrition; I50.21 Acute systolic (congestive) heart failure; E11.10 Type 2 diabetes mellitus with ketoacidosis without coma; J18.9 Pneumonia, unspecified organism; E87.1 Hypo-osmolality and hyponatremia; F13.20 Sedative, hypnotic or anxiolytic dependence, uncomplicated; I11.0 Hypertensive heart disease with heart failure; I47.1 Supraventricular tachycardia; I48.92 Unspecified atrial flutter; I48.91 Unspecified atrial fibrillation; E66.01 Morbid (severe) obesity due to excess calories; D50.9 Iron deficiency anemia, unspecified; E87.6 Hypokalemia; F17.210 Nicotine dependence, cigarettes, uncomplicated; G47.33 Obstructive sleep apnea (adult) (pediatric); I35.8 Other nonrheumatic aortic valve disorders; J98.11 Atelectasis; K61.0 Anal abscess; L02.31 Cutaneous abscess of buttock; L02.32 Furuncle of buttock; N45.1 Epididymitis; N48.89 Other specified disorders of penis; N50.89 Other specified disorders of the male genital organs; Z83.3 Family history of diabetes mellitus; Z68.31 Body mass index [BMI] 31.0-31.9, adult; Z86.73 Personal history of transient ischemic attack (TIA), and cerebral infarction without residual deficits
CPT/HCPCS: 36415; 36569; 36600; 71045; 71275; 76870; 76937; 78580; 80048; 80053; 80202; 80305; 81001; 82010; 82375; 82805; 82962; 83605; 83735; 83880; 84443; 84484; 85025; 85379; 85610; 85651; 86140; 87040; 87070; 87077; 87086; 87205; 87804; 90715; 93005; 93306; 93976; 94640; 96365; 96366; 96367; 96368; 96372; 96375; 97116; 97161; 99291; A6261; C1725; J0456; J0690; J0696; J1160; J1650; J1815; J1940; J2270; J2405; J2543; J3370; J3480; J3490; J7030; J7040; J7050; J7060; J7620; J7626; Q9967